=== PATIENT | male | born 2000 | race Caucasian/White ===

== ENCOUNTER 2019-05-20 15:19 | Emergency (ER) | payer OTHER ==
[2019-05-20 16:59] LABS: Hematocrit 42 % (42-52); Hemoglobin 14.7 g/dL (14.0-18.0); Mean Corpuscular HGB Conc 35 g/dL (31-36); Mean Corpuscular Hemoglobin 31 pg (27-31); Mean Corpuscular Volume 88 fL (80-94); Mean Platelet Volume 9.3 fL (7.4-10.4); Platelet Count 186 10^3/uL (150-450); Red Blood Count 4.79 10^6 /uL (4.18-5.48); Red Cell Distribution Width 13 % (10-15); White Blood Count 8.7 10^3/uL (3.5-10.8)
--- NOTE | 2019-05-20 16:59 | ED ---
Abdominal Pain/Male - HPI Summary HPI Summary: 18-year-old male diagnosed with mononucleosis presents to the emergency department today after being sent from [facility] due to elevated liver enzymes. Patient states over the last few weeks he has not felt well complaining of myalgia and fatigue. Patient states she tested positive for mononucleosis yesterday as well as parvovirus. Patient had abdominal ultrasound done to evaluate the liver, spleen, kidneys which returned showing mild enlargement of the spleen but no evidence of gallstones. [facility] symptom for evaluation as they were concerned over elevated liver enzymes. Patient negative for influenza. Patient otherwise feels well and only complains of 2 out of 10 diffuse abdominal pain which is made worse with eating. Patient denies chest pain, shortness breath, fever, rash, pain with urination, nausea, vomiting, diarrhea. Patient denies recent recreational drug use, alcohol use, NSAID or Tylenol use. Patient denies new sexual partners or exposure to HIV. - History of Current Complaint Chief Complaint: EDAbdPain Stated Complaint: ABNORMAL LABS PER PT Time Seen by Provider: 05/20/19 16:59 Hx Obtained From: Patient Onset/Duration: Gradual Onset Timing: Constant Severity Initially: Mild Severity Currently: Mild Pain Intensity: 2 Pain Scale Used: 0-10 Numeric Location: Diffuse Radiates: No Character: Dull Aggravating Factor(s): Food - Allergies/Home Medications Allergies/Adverse Reactions: Allergies Allergy/AdvReac Type Severity Reaction Status Date / Time No Known Allergies Allergy Verified 05/20/19 15:27 Home Medications: Home Medications Ondansetron TAB* [Zofran 4 MG Tab*] 8 mg PO Q6H PRN 05/20/19 [History Confirmed 05/20/19] predniSONE 10 mg TAB [Deltasone 10 MG TAB*] 1 mg PO DAILY 05/20/19 [History Confirmed 05/20/19] PMH/Surg Hx/FS Hx/Imm Hx Endocrine/Hematology History: Denies: Hx Diabetes Cardiovascular History: Denies: Hx Hypertension, Hx Pacemaker/ICD History: Denies: Hx Renal Disease Sensory History: Denies: Hx Hearing Aid Psychiatric History: Denies: Hx Panic Disorder - Surgical History Surgery Procedure, Year, and Place: DENIES - Immunization History Date of Influenza Vaccine: 12/2018 Infectious Disease History: No Infectious Disease History: Denies: Traveled Outside the [place] in Last 30 Days - Social History Alcohol Use: Rare Substance Use Type: Reports: None Smoking Status (MU): Never Smoked Tobacco Review of Systems Positive: Fatigue Eyes: Negative ENT: Negative Cardiovascular: Negative Respiratory: Negative Positive: Abdominal Pain Genitourinary: Negative Positive: Myalgia. Negative: Arthralgia Skin: Negative Neurological/Mental Status: Negative Psychological: Normal All Other Systems Reviewed And Are Negative: Yes Physical Exam Triage Information Reviewed: Yes Vital Signs On Initial Exam: Initial Vitals Temp Pulse Resp BP Pulse Ox 98.6 F 86 18 172/82 100 05/20/19 15:22 05/20/19 15:22 05/20/19 15:22 05/20/19 15:22 05/20/19 15:22 Vital Signs Reviewed: Yes Appearance: Positive: Well-Appearing, No Pain Distress, Well-Nourished Skin: Positive: Warm, Skin Color Reflects Adequate Perfusion Eyes: Positive: EOMI, KIRSTIN ENT: Positive: Hearing grossly normal Respiratory/Lung Sounds: Positive: Clear to Auscultation, Breath Sounds Present Cardiovascular: Positive: RRR, S1, S2 Abdomen Description: Positive: Soft. Negative: Nontender, Distended, Guarding, McBurney's Point Tenderness, Peritoneal Signs, Pulsatile Mass Bowel Sounds: Positive: Present Musculoskeletal: Positive: Strength/ROM Intact Neurological: Positive: Sensory/Motor Intact, Alert, Oriented to Person Place, Time, Normal Gait, Facial Symmetry, Speech Normal Psychiatric: Positive: Normal, Affect/Mood Appropriate AVPU Assessment: Alert Procedures - Sedation Patient Received Moderate/Deep Sedation with Procedure: No Diagnostics - Vital Signs Vital Signs Temp Pulse Resp BP Pulse Ox 05/20/19 15:22 98.6 F 86 18 172/82 100 - Laboratory Result Diagrams: 05/20/19 16:48 05/20/19 16:48 Lab Statement: Any lab studies that have been ordered have been reviewed, and results considered in the medical decision making process. Abdominal Pain Male Course/Dx - Course Course Of Treatment: Patient was evaluated in the emergency department today due to elevated liver enzymes. Vitals noted and stable. Patient no acute distress. Laboratory studies returned showing positive Monospot. Electrolytes returned showing no evidence of leukocytosis with white blood cell count of 8.7. Patient has positive elevated reactive lymphocytes this is consistent with mononucleosis. INR is mildly elevated at 1.29. There are no significant electrolyte abnormalities. CRP is elevated at 10.29. Patients total bilirubin is elevated at 3.30, direct bilirubin 2.10, and direct bilirubin 1.2. Total bilirubin is unchanged compared to lab work done by [facility] approximately 2 days ago. Patient liver panel returned showing elevated GGT at 164, AST 534, ALT 825, alkaline phosphatase 306. AST and ALT are changed compared to prior lab work done approximately 2 days ago which were, AST 333, ALT 484. Dr. Parekh, GI was consulted for disposition of the patient. He did not find his transaminitis to be concerning and believed it was consistent with diagnosis of mononucleosis. Patient discharged with outpatient follow-up with a repeat liver panel to be drawn on Thursday. Patient is to avoid contact sports or alcohol. - Diagnoses Differential Diagnosis/HQI/PQRI: Gall Bladder Disease, Hepatitis, Pancreatitis Provider Diagnoses: Transaminitis, Mononucleosis - Provider Notifications Discussed Care Of Patient With: Arun Parekh - believed patient's symptoms and lab work is consistent with mononucleosis. No acute pathology requiring intervention at this time. Patient is safe for outpatient follow-up. Discharge ED - Sign-Out/Discharge Documenting (check all that apply): Patient Departure - Discharge Plan Condition: Stable Disposition: HOME Patient Education Materials: Mononucleosis (ED) Referrals: Robin Garcia DO [Primary Care Provider] - 3 Days Additional Instructions: You were seen in the emergency department today due to elevated liver enzymes caused by mononucleosis. This is a virus which will resolve on its own however this may take weeks to months. Please follow-up with [facility] on Thursday for recheck of liver enzymes. Please avoid alcohol, contact sports. Please return to this emergency Department immediately if you develop any new or worsening symptoms. - Billing Disposition and Condition Condition: STABLE Disposition: Home
[2019-05-20 17:06] LABS: Urine Appearance Clear; Urine Bilirubin Negative (Negative); Urine Blood Negative (Negative); Urine Color Amber; Urine Glucose Negative (Negative); Urine Ketones Negative (Negative); Urine Nitrite Negative (Negative); Urine Protein Negative (Negative); Urine Specific Gravity 1.011 (1.010-1.030); Urine Urobilinogen Positive (Negative)
[2019-05-20 17:07] LABS: Activated Partial Thrombo Time 32.8 seconds (26.0-38.0); INR 1.29 (0.82-1.09)
[2019-05-20 17:13] LABS: Albumin 4.3 g/dL (3.2-5.2); Albumin/Globulin Ratio 1.5 (1-3); BUN/Creatinine Ratio 9.9 (8-20); C Reactive Protein 10.29 mg/L (<8.01); Calcium 9.2 mg/dL (8.6-10.3); EGFR African American 129.9 (>60); EGFR Non-African American 107.3 (>60); Globulin 2.8 g/dL (2-4); Potassium 3.7 mmol/L (3.5-5.0); Total Bilirubin 3.3 mg/dL (0.2-1.0); Total Protein 7.1 g/dL (6.4-8.9)
[2019-05-20 17:39] LABS: Indirect Bilirubin 1.2 mg/dL (0.3-1.0)
[2019-05-20 17:45] LABS: ABS Basophils 0.1 10^3/ul (0-0.2); ABS Lymphocytes 3.9 10^3/ul (1.0-4.8); ABS Neutrophils 3.8 10^3/ul (1.5-7.7); Eosinophil % 0.5 %; Lymphocyte % 44.3 %; Nucleated Red Blood Cells % 0.2
[2019-05-20 20:02] VITALS: BP 142/68
== END 2019-05-20 19:53 | disposition home or self-care (01) ==
LOC: ED 15:19
DX: R74.0 Nonspecific elevation of levels of transaminase and lactic acid dehydrogenase [LDH] (principal); B27.90 Infectious mononucleosis, unspecified without complication
CPT/HCPCS: 36415; 80053; 81003; 82248; 82977; 83605; 83690; 85025; 85060; 85610; 85730; 86140; 86308; 99282